=== PATIENT | female | born 1945 | race Two or more races ===

== ENCOUNTER 2023-03-31 10:07 | Outpatient (CLI) | payer OTHER | END 2023-03-31 10:24 | disposition home or self-care (01) | LOC: RAD 10:07 | PROVIDERS: ATTEND Orthopaedic Surgery | DX: S83.201A Bucket-handle tear of unspecified meniscus, current injury, left knee, initial encounter (principal); M25.561 Pain in right knee; M25.562 Pain in left knee | CPT/HCPCS: 73718 ==